=== PATIENT | female | born 1995 | race Two or more races ===

== ENCOUNTER → 2019-06-12 | Outpatient (CLI) | payer OTHER | END | disposition home or self-care (01) | LOC: LAB 11:14 | PROVIDERS: ATTEND Physician Assistant | DX: Z02.0 Encounter for examination for admission to educational institution (principal) | CPT/HCPCS: 36415; 86706; 86735; 86762; 86765; 86787 ==

== ENCOUNTER 2022-04-03 00:56 | Emergency (ER) | payer BC, OTHER ==
[~2022-04-03] VITALS: Ht 172.7 cm; Wt 52.2 kg
[2022-04-03] MEDS ORDERED: ONDANSETRON HCL 4 MG/2 ML VIAL ONE (01:24)
[2022-04-03] MEDS ORDERED: SODIUM CHLORIDE 0.9% 1,000 ML IV ONE ×2 (01:30→02:00)
[2022-04-03] MEDS ORDERED: ONDANSETRON HCL 4 MG/2 ML VIAL IV ONE (01:30)
[2022-04-03] MEDS ORDERED: THIAMINE 100mg/ml INJ (200mg/2ml VIAL) IV ONE (02:00)
[2022-04-03] MEDS ORDERED: PROMETHAZINE HCL 25 MG/ML 1ML IV ONE (02:00)
[2022-04-03 02:08] LABS: Basophils # (auto) 0 10 ^3/uL (0-0.2); Basophils % (auto) 0.7 % (0.0-2.0); Eosinophils # (auto) 0.1 10 ^3/uL (0-0.8); Eosinophils % (auto) 1.3 % (0.0-7.0); Hematocrit 38.6 % (36.0-46.0); Hemoglobin 13.1 g/dL (12.2-16.2); Lymphocytes # (auto) 2.5 10 ^3/uL (0.4-5.4); Lymphocytes % (auto) 39.1 % (10.0-50.0); Mean Corpuscular Hemoglobin 31.2 pg (28.0-32.0); Mean Corpuscular Volume 91.6 fL (80.0-100.0); Monocytes # (auto) 0.4 10 ^3/uL (0-1.3); Monocytes % (auto) 5.6 % (0.0-12.0); Neutrophils # (auto) 3.4 10 ^3/uL (1.6-8.6); Neutrophils % (auto) 53.3 % (37.0-80.0); Nucleated Red Blood Cells % 0.1 %; Red Blood Cells 4.22 10^6/uL (4.0-5.20); Red Cell Distribution Width 12.6 % (11.8-14.3); White Blood Cell 6.4 10^3/uL (4.4-10.8)
[2022-04-03 02:19] LABS: Albumin 4.4 g/dL (3.4-5.0); Calcium 8.5 mg/dL (8.5-10.1); Potassium 3.9 mmol/L (3.5-5.1)
[2022-04-03 02:22] LABS: BUN/Creatinine Ratio 11.1
[2022-04-03 02:24] LABS: Bilirubin, Total 0.3 mg/dL (0.2-1.0); Total Protein 7.8 g/dL (6.4-8.2)
[2022-04-03 04:51] VITALS: BP 88/63
== END 2022-04-03 04:51 | disposition home or self-care (01) ==
LOC: EEVIPCON 00:56 → ER 00:56
DX: K52.9 Noninfective gastroenteritis and colitis, unspecified (principal); Z88.1 Allergy status to other antibiotic agents
CPT/HCPCS: 36415; 80053; 85025; 96361; 96374; 96375; 99284; J2405; J2550; J3411; J7030

== ENCOUNTER 2023-07-17 06:00 | Observation (INO) | payer BC ==
[~2023-07-17] VITALS: Ht 172.7 cm; Wt 70.0 kg
[~2023-07-17 06:00] MED LIST: AZITTAB PO; PRED20TA2 PO
[2023-07-17] MEDS ORDERED: TERBUTALINE SULFATE 1 MG/ML 1ML VIAL SC SCH (07:15)
[2023-07-17] MEDS: ceFAZolin 2 GM/D5W100ml 100 ML IV ONE (08:13)
[2023-07-17 09:24] LABS: Urine Bacteria FEW /hpf (None Seen); Urine Blood Negative /uL (Negative); Urine Clarity Clear (Clear); Urine Color Yellow (Yellow); Urine Mucus FEW (None Seen); Urine Protein, UAD Negative (Negative); Urine Specific Gravity 1.018 (1.001-1.035); Urine Urobilinogen Normal (Negative); Urine WBC 3 /hpf (0 - 5); Urine pH 5.5 (5.0-8.0)
[2023-07-17] MEDS: MORPHINE SULFATE INJ 2 MG/ml SYRG IV STA (10:34)
[2023-07-17 10:38] LABS: Basophils # (auto) 0 10 ^3/uL (0-0.2); Basophils % (auto) 0.3 % (0.0-2.0); Eosinophils # (auto) 0.1 10 ^3/uL (0-0.8); Eosinophils % (auto) 1.2 % (0.0-7.0); Hemoglobin 11.3 g/dL (12.2-16.2); Lymphocytes # (auto) 2.4 10 ^3/uL (0.4-5.4); Lymphocytes % (auto) 22.8 % (10.0-50.0); Mean Corpuscular Hemoglobin 31.2 pg (28.0-32.0); Mean Corpuscular Hgb Conc. 33.2 g/dL (32.0-36.0); Mean Corpuscular Volume 93.8 fL (80.0-100.0); Monocytes # (auto) 0.7 10 ^3/uL (0-1.3); Monocytes % (auto) 6.7 % (0.0-12.0); Neutrophils # (auto) 7.1 10 ^3/uL (1.6-8.6); Nucleated Red Blood Cells % 0.1 %; Red Blood Cells 3.63 10^6/uL (4.0-5.20); White Blood Cell 10.3 10^3/uL (4.4-10.8)
[2023-07-17] MEDS ORDERED: PREN1TAB71 OR (10:45)
[2023-07-17 10:57] LABS: Alanine Aminotransferase 22 U/L (7-40); Albumin 3.4 g/dL (3.2-4.8); Alkaline Phosphatase 75 U/L (46-116); Anion Gap 5 (5-15); Aspartate Aminotransferase 21 U/L (13-40); Bilirubin, Total 0.4 mg/dL (0.2-1.0); Calcium 8.7 mg/dL (8.5-10.1); Carbon Dioxide 26 mmol/L (20-30); Chloride 108 mmol/L (98-107); Glucose 85 mg/dL (74-106); Potassium 3.5 mmol/L (3.5-5.1); Sodium 139 mmol/L (136-145); Total Protein 5.9 g/dL (5.7-8.2)
[2023-07-17 11:14] LABS: BUN/Creatinine Ratio 7.6 (10.0-20.0); Blood Urea Nitrogen < 5 mg/dL (9-23)
[2023-07-17] MEDS ORDERED: MORPHINE SULFATE INJ 2 MG/ml SYRG IM ONE (11:40)
[2023-07-17] MEDS: LACTATED RINGER'S 1,000 ML IV ONE (12:33)
[2023-07-17] MEDS ORDERED: MORPHINE SULFATE INJ 2 MG/ml SYRG IV ONE (12:45)
[2023-07-17 15:36] VITALS: BP 154/87; PULSE 72; RESP 16; O2SAT 97
[2023-07-17] MEDS ORDERED: TAMS-35 PO (19:11)
== END 2023-07-17 15:00 | disposition home or self-care (01) ==
LOC: EEVIPCON 06:00 → ER 06:00 → LDRP 06:16 → UNDODISOB 14:35
PROVIDERS: ADMIT Obstetrics & Gynecology; ATTEND Obstetrics & Gynecology
DX: O99.891 Other specified diseases and conditions complicating pregnancy (principal); M54.9 Dorsalgia, unspecified; R10.9 Unspecified abdominal pain; O46.92 Antepartum hemorrhage, unspecified, second trimester; Z3A.20 20 weeks gestation of pregnancy
CPT/HCPCS: 36415; 59025; 76705; 76775; 80053; 81001; 81002; 85025; 96365; 96375; G0378; J2270; J3105; 96360; 96361; 96374

== ENCOUNTER 2023-07-17 14:35 | Emergency (ER) | payer BC ==
[~2023-07-17] VITALS: Ht 172.7 cm; Wt 70.0 kg
[~2023-07-17 14:35] MED LIST changes: +PREN1TAB71 OR
[2023-07-17 16:30] VITALS: PULSE 66; RESP 11; O2SAT 98
[2023-07-17] MEDS ORDERED: KETOROLAC TROMETH 30 MG/ML 1ML VIAL IV ONE (17:00)
[2023-07-17] MEDS: METOCLOPRAMIDE HCL 5MG/ml INJ 2ml VIAL IV ONE ×2 (17:00→17:33)
[2023-07-17 18:30] LABS: Urine Bacteria FEW /hpf (None Seen); Urine Blood Negative /uL (Negative); Urine Clarity HAZY (Clear); Urine Color Colorless (Yellow); Urine Protein, UAD Negative (Negative); Urine Specific Gravity 1.012 (1.001-1.035); Urine Urobilinogen Normal (Negative); Urine WBC 4 /hpf (0 - 5)
[2023-07-17] MEDS ORDERED: TAMSULOSIN HYDROCHLORIDE 0.4 MG CAP PO ONE (19:00)
[2023-07-17] MEDS ORDERED: METOCLOPRAMIDE HCL 5MG/ml INJ 2ml VIAL IV ONE (19:00)
[2023-07-17] MEDS ORDERED: TAMS-35 PO (19:11)
[2023-07-17] MEDS ORDERED: HYDROmorphone HCL 2 MG/ML VL/or syr IV ONE (19:30)
[2023-07-17 20:00] VITALS: BP 103/60; PULSE 59; RESP 15; O2SAT 99
== END 2023-07-17 21:12 | disposition home or self-care (01) ==
LOC: ER 14:35 → EEVIPCON 14:35 → ER 21:12
DX: O99.612 Diseases of the digestive system complicating pregnancy, second trimester (principal); N20.1 Calculus of ureter; K92.89 Other specified diseases of the digestive system; R10.31 Right lower quadrant pain; Z3A.20 20 weeks gestation of pregnancy; Z88.1 Allergy status to other antibiotic agents; Z79.899 Other long term (current) drug therapy; Z98.890 Other specified postprocedural states
CPT/HCPCS: 81001; 96374; 99285; J2765

== ENCOUNTER 2023-07-25 02:32 | Observation (INO) | payer BC ==
[~2023-07-25 02:32] MED LIST changes: +TAMS-35 PO
[2023-07-25] MEDS ORDERED: NITR-87 PO (06:57)
== END 2023-07-25 03:59 | disposition still patient (30) ==
LOC: LDRP 02:32
PROVIDERS: ADMIT Obstetrics & Gynecology; ATTEND Obstetrics & Gynecology
DX: O26.892 Other specified pregnancy related conditions, second trimester (principal); R10.9 Unspecified abdominal pain; Z3A.21 21 weeks gestation of pregnancy
CPT/HCPCS: 59025; 81002; G0378

== ENCOUNTER 2023-07-25 03:58 | Emergency (ER) | payer BC ==
[~2023-07-25] VITALS: Ht 172.7 cm; Wt 56.3 kg
[2023-07-25] MEDS ORDERED: ACETAMINOPHEN IV 1000 MG/100ML (10MG/ML) IV ONE (04:45)
[2023-07-25] MEDS ORDERED: LACTATED RINGER'S 1,000 ML IV ONE (04:45)
[2023-07-25] MEDS ORDERED: ACETAMINOPHEN IV 100 ML IV ONE (04:49)
[2023-07-25 05:23] VITALS: PULSE 71; RESP 16; O2SAT 98
[2023-07-25 05:25] LABS: Basophils # (auto) 0.1 10 ^3/uL (0-0.2); Basophils % (auto) 0.6 % (0.0-2.0); Eosinophils # (auto) 0.1 10 ^3/uL (0-0.8); Hematocrit 33.9 % (36.0-46.0); Hemoglobin 11.4 g/dL (12.2-16.2); Lymphocytes # (auto) 1.7 10 ^3/uL (0.4-5.4); Mean Corpuscular Hemoglobin 31.6 pg (28.0-32.0); Mean Corpuscular Hgb Conc. 33.7 g/dL (32.0-36.0); Monocytes # (auto) 0.7 10 ^3/uL (0-1.3); Monocytes % (auto) 8.6 % (0.0-12.0); Neutrophils # (auto) 6.1 10 ^3/uL (1.6-8.6); Neutrophils % (auto) 69.8 % (37.0-80.0); Nucleated Red Blood Cells % 0.1 %; Red Blood Cells 3.61 10^6/uL (4.0-5.20); Red Cell Distribution Width 13.1 % (11.8-14.3); White Blood Cell 8.7 10^3/uL (4.4-10.8)
[2023-07-25 05:26] LABS: Urine Bacteria FEW /hpf (None Seen); Urine Blood Negative /uL (Negative); Urine Clarity Clear (Clear); Urine Color Colorless (Yellow); Urine Protein, UAD Negative (Negative); Urine Specific Gravity 1.008 (1.001-1.035); Urine Urobilinogen Normal (Negative); Urine WBC 12 /hpf (0 - 5)
[2023-07-25 05:36] LABS: Alanine Aminotransferase 29 U/L (7-40); Albumin 3.8 g/dL (3.2-4.8); Alkaline Phosphatase 92 U/L (46-116); Anion Gap 6 (5-15); Aspartate Aminotransferase 26 U/L (13-40); BUN/Creatinine Ratio 14.3 (10.0-20.0); Bilirubin, Total 0.4 mg/dL (0.2-1.0); Blood Urea Nitrogen 8 mg/dL (9-23); Calcium 8.7 mg/dL (8.5-10.1); Carbon Dioxide 25 mmol/L (20-30); Chloride 106 mmol/L (98-107); Glucose 85 mg/dL (74-106); Potassium 3.4 mmol/L (3.5-5.1); Sodium 137 mmol/L (136-145); Total Protein 6.1 g/dL (5.7-8.2)
[2023-07-25] MEDS ORDERED: NITR-87 PO (06:57)
[2023-07-25 07:00] VITALS: BP 98/53; PULSE 66; RESP 19; O2SAT 97
[2023-07-25] MEDS ORDERED: cefTRIAXone 1GM/50ML D5W 50 ML IV ONE (07:00)
[2023-07-25] MEDS ORDERED: POTASSIUM EFFERVESENT TAB 25 MEQ PO ONE (07:00)
== END 2023-07-25 07:57 | disposition home or self-care (01) ==
LOC: ER 03:58 → EEVIPCON 03:58 → ER 07:55
DX: O99.891 Other specified diseases and conditions complicating pregnancy (principal); R10.2 Pelvic and perineal pain; O23.42 Unspecified infection of urinary tract in pregnancy, second trimester; O26.892 Other specified pregnancy related conditions, second trimester; N13.30 Unspecified hydronephrosis; E87.6 Hypokalemia; R10.9 Unspecified abdominal pain; Z3A.21 21 weeks gestation of pregnancy; Z88.1 Allergy status to other antibiotic agents; Z79.899 Other long term (current) drug therapy
CPT/HCPCS: 36415; 76775; 76815; 76817; 80053; 81001; 84702; 85025; 96361; 96365; 96375; 99285; J0131; J0696

== ENCOUNTER 2025-08-07 01:46 | Emergency (ER) | payer BC, OTHER ==
[~2025-08-07] VITALS: Ht 172.7 cm; Wt 55.9 kg
[~2025-08-07 01:46] MED LIST changes: +NITR-87 PO
[2025-08-07] MEDS: KETOROLAC TROMETH 60MG/2ML VIAL IM ONE (02:47)
--- NOTE | 2025-08-07 02:50 | ED.PDOC ---
Back pain HPI HPI Comments PT CAME TO THE ER WITH CC OF NOSE INJURY, PT STATES THAT SHE WAS SLEEPING WHEN HER HEAD BUTTED HER. PT REPORTS 7/10 PAIN IN THE NOSE AREA WITH NO RELIEF AFTER TYLENOL AND ICE. PT IS A&OX4 RR EVEN AND REGULAR NO DISTRESS NOTED. DENIES BLEEDING OR NUMBNESS Chief Complaint: Facial Injury Time Seen by MD: 01:58 Primary Care Provider: HAMILTON Fountain Notes: Nurses Notes, Medications, Allergies Allergies: Coded Allergies: Amoxicillin (Verified Allergy, Unknown, 04/03/22) Home Meds Active Scripts Ibuprofen (Ibuprofen) 800 Mg Tab, 800 MG PO Q8HP PRN for 5 Days, #15 TAB Prov:CODY WHITE 08/07/25 Nitrofurantoin Monohydrate Mac (Macrobid) 100 Mg Cap, 100 MG PO BID for 7 Days, #14 CAP Prov:EVELIN MEDINA DO 07/25/23 Tamsulosin Hcl (Flomax) 0.4 Mg Cap, 1 CAP PO DAILY for 5 Days, #30 CAP 11 Refills Prov:RADHA PATINO MD 07/17/23 Azithromycin (Zithromax Z-Сергей) 250 Mg Tab, 250 MG PO DAILY for 5 Days, #6 TAB 0 Refills Prov:EVELIN MEDINA DO 03/17/23 Prednisone (Prednisone) 20 Mg Tab, 60 MG PO DAILY, #16 TAB Prov:JASMEET AMBROCIO 12/07/22 Reported Medications Vit W/ Ferrous Fumara (PNV PLUS MULTIVI) Plus Tab, 1 OR, TAB 07/17/23 Information Source: Patient Mode of Arrival: Ambulatory Past Medical History PAST MEDICAL HISTORY: Denies Surgical History: Denies all surgeries MANAGER CONTACT History: Endometriosis Family History Family History: Reviewed,noncontributory to illness Social History Smoker: Non-Smoker Alcohol: Denies ETOH Use Drugs: Denies Drug Use Lives In: Home All Other Systems: Reviewed and Negative (SEE HPI) Physical Exam General Appearance: No Apparent Distress, Normal HEENT: Head (MODERATE TENDERNESS PALPATED OVER RIGHT-SIDED BRIDGE OF NOSE WITH TRACE EDEMA NO NOTED SEPTAL DEVIATION NO NOTED BLEEDING TRACE ECCHYMOSIS), Pharynx Normal, TMs Normal Neck: Full Range of Motion, Non-Tender Respiratory: Lungs Clear, No Respiratory Distress, Normal Breath Sounds Cardiovascular: No Murmur, Normal Peripheral Pulses, Regular Rate/Rhythm Breast Exam: Deferred Gastrointestinal: Non Tender, Soft Genitalia: Deferred Pelvic: Deferred Rectal: Deferred Extremities: Normal range of motion Musculoskeletal : Apperance: Normal Neurologic: Alert, No Motor Deficits, Normal Affect, Normal Mood, No Sensory Deficits Cerebellar Function: Normal Reflexes: NOT DONE Skin: Dry, Normal Color, Warm Lymphatic: No Adenopathy Was a procedure done? Was a procedure done?: No Back Pain Differential Dx Differential Diagnosis: Fracture, Musculoskeletal Pain X-Ray, Labs, Meds, VS Vital Signs Date Time Temp Pulse Resp B/P (MAP) Pulse Ox O2 Delivery O2 Flow Rate FiO2 08/07/25 01:48 98.1 69 16 115/95 100 98.1 Current Medications Medications (Trade) Dose Ordered Sig/Thania Route Start Time Stop Time Status Last Admin Ketorolac Tromethamine (Toradol Injection) 60 mg ONCE ONCE IM 08/07/25 02:00 08/07/25 02:01 DC 08/07/25 02:53 X-Ray, Labs, Meds, VS Comment Facial x-ray shows no acute fractures. Script trial of ibuprofen. Advised to follow up with the PCP as needed. ER return precautions given patient indicates understanding agrees with discharge plan of care. Images Reviewed?: Images reviewed and evaluated by me Time of 1ST Reevaluation: 01:58 Reevaluation 1ST: Unchanged Reevaluation 2ND: Improved Patient Education/Counseling: Diagnosis, Treatment, Need For Follow Up Family Education/Counseling: No Family Present SEPSIS Sepsis Screen Date sepsis recognized/suspect: Aug 07, 2025 Time Sepsis recognized/suspect: 0152 Recent Procedure: No On Antibiotic Therapy: No Respiratory Rate >20: No Heart Rate >90: No Temp<36 C (96.8 F) or >38.3 C: No SBP <90 or MAP <65 mmHG: No New Acute Mental Status Change: No Is the patient on CPAP, BIPAP,: No Physician Orders Facial Bones Complete (08/07/25 01:58) Vital Signs Date Time Temp Pulse Resp B/P (MAP) Pulse Ox O2 Delivery O2 Flow Rate FiO2 08/07/25 01:48 98.1 69 16 115/95 100 98.1 Medications Medications Dose Ordered Sig/Thnaia Route Start Time Stop Time Status Last Admin Dose Admin Ketorolac Tromethamine 60 mg ONCE ONCE IM 08/07/25 02:00 08/07/25 02:01 DC 08/07/25 02:53 Departure 1 Departure Time of Disposition: 03:46 Impression: Primary Impression: Contusion of nose Qualified Codes: S00.33XA - Contusion of nose, initial encounter Disposition: HOME / SELF CARE / HOMELESS Condition: Stable e-Prescriptions Ibuprofen (Ibuprofen) 800 Mg Tab 800 MG PO Q8HP PRN for 5 Days, #15 TAB Prov: CODY WHITE 08/07/25 Discharged With: Self Critical Care Note Critical Care Time?: No Stability Stability form required: CODY Colin Aug 07, 2025 02:50
[2025-08-07] MEDS ORDERED: IBUP-1456 PO (03:42)
[2025-08-07 03:48] VITALS: BP 118/78; PULSE 64; RESP 18; TEMP 98.4; O2SAT 99
--- NOTE | 2025-08-07 22:08 | DVH ---
CLINICAL INDICATION: Pain. TECHNIQUE: XYXY FACIAL BONES COMPLETE Comparison: None FINDINGS/IMPRESSION: : There is no evidence of acute fracture or dislocation. Soft tissues are unremarkable.
== END 2025-08-07 03:51 | disposition home or self-care (01) ==
LOC: EEVIPCON 01:46 → ER 01:46
DX: S00.33XA Contusion of nose, initial encounter (principal); Z88.0 Allergy status to penicillin; X58.XXXA Exposure to other specified factors, initial encounter; Y93.89 Activity, other specified; Y92.89 Other specified places as the place of occurrence of the external cause; Y99.8 Other external cause status
CPT/HCPCS: 70140; 96372; 99283; J1885